=== PATIENT | male | born 1975 | race Caucasian/White ===

== ENCOUNTER 2018-01-23 17:33 | Observation (INO) | payer OTHER ==
[~2018-01-23] VITALS: Ht 185.4 cm; Wt 117.9 kg
[~2018-01-23 17:33] MED LIST: COZAAR100 MG PO; GLIPIZIDE ER10 MG PO; JANUVIA100 MG PO; METFORMIN HYDRO25 G1; NORVASC5 MG; SIMCOR 1,000-21 EACH PO
[2018-01-23 17:55] LABS: BASOPHILS # (AUTO) 0.1 (0.0-0.1); BASOPHILS % 0.6 % (0.0-1.0); EOSINOPHILS # (AUTO) 0.8 (0.0-0.4); EOSINOPHILS % 5.2 % (0.0-6.0); HEMOGLOBIN 14.8 g/dL (14.0-18.0); LYMPHOCYTES # (AUTO) 4.1 (1.0-3.2); LYMPHOCYTES % 25.9 % (18.0-39.1); MEAN CORPUSCULAR HEMOGLOBIN 28.8 pg (28-32); MEAN CORPUSCULAR HGB CONC 33.6 g/dL (31-35); MEAN CORPUSCULAR VOLUME 85.6 fL (81-99); MONOCYTES # (AUTO) 1.1 (0.2-0.8); MONOCYTES % 7.1 % (4.4-11.3); NEUTROPHILS # (AUTO) 9.6 (2.1-6.9); NEUTROPHILS % 60.4 % (38.7-80.0); PLATELET COUNT 384 x10e3/uL (140-360); RED BLOOD COUNT 5.14 x10e6/uL (4.3-5.7); RED CELL DISTRIBUTION WIDTH 14.4 % (11.7-14.4)
[2018-01-23 18:12] LABS: ALBUMIN 3.8 g/dL (3.5-5.0); ALBUMIN/GLOBULIN RATIO 0.9 (0.8-2.0); ANION GAP 13.4 mmol/L (8-16); CREATININE, SERUM 2.31 mg/dL (0.72-1.25); INR 1.08; PARTIAL THROMBOPLASTIN TIME 25.4 seconds (23.8-35.5); POTASSIUM 4.4 mmol/L (3.5-5.1); PROTHROMBIN TIME 13.2 seconds (11.9-14.5)
--- NOTE | 2018-01-23 18:37 | Diagnostic Imaging Report ---
PROCEDURE: Frontal and lateral views of the chest. COMPARISON: Patients [facility], , CHEST SINGLE (NOT PORTABLE), 06/17/2013, 21:16. INDICATIONS: LETHARGIC, SHORTNESS OF BREATH FINDINGS: Lines/tubes: None. Lungs: The lungs are well inflated and clear. There is no evidence of pneumonia or pulmonary edema. Pleura: There is no pleural effusion or pneumothorax. Heart and mediastinum: The heart and the mediastinum are normal. Bones: No acute bony abnormality. IMPRESSION: 1. No acute cardiopulmonary abnormalities. Kaz Richards M.D. Dictated by: Kaz Richards M.D. on 01/23/2018 at 18:38 Electronically approved by: Kaz Richards M.D. on 01/23/2018 at 18:38
[2018-01-23] MEDS ORDERED: DEXTROSE 50% SYRINGE 50 ML IV PRN ×3 (20:00)
[2018-01-23 20:23] LABS: CREATINE KINASE 125 IU/L (30-200)
--- OUTSIDE RECORDS SUMMARY | 2018-01-23 20:39 | XMS REPORT ---
Author Author [facility] Address Unknown Phone Unavailable Care Team Providers Care Fancy Stitcher Name Role Phone CHRISSY BANEGAS Unavailable Unavailable Problems This patient has no known problems. Allergies, Adverse Reactions, Alerts This patient has no known allergies or adverse reactions. Medications This patient has no known medications. Results Test Description Test Time Test Comments Text Results Atomic Results Result Comments CHEST 2 VIEWS [place] [address] Patient Name: BRITTNEY HOUGH MR #: [id number] : 1975 Age/Sex: 42/M Req #: [id number] Adm Physician: Ordered by: CHRISSY BANEGAS MD Report #: [id number] Location: ER Room/Bed: Procedure: [id number] DX/CHEST 2 VIEWS Exam Date: 01/23/18 Exam Time: 1805 REPORT STATUS: Signed PROCEDURE: Frontal and lateral views of the chest. COMPARISON: [facility], DX, CHEST SINGLE (NOT PORTABLE), 06/17/2013, 21:16. INDICATIONS: LETHARGIC, SHORTNESS OF BREATH FINDINGS: Lines/tubes: None. Lungs: The lungs are well inflated and clear. There is no evidence of pneumonia or pulmonary edema. Pleura: There is no pleural effusion or pneumothorax. Heart and mediastinum: The heart and the mediastinum are normal. Bones: No acute bony abnormality. IMPRESSION: 1. No acute cardiopulmonary abnormalities. Jose Guerra M.D. Dictated by: Jose Guerra M.D. on 01/23/2018 at 18:38 Electronically approved by: Jose Guerra M.D. on 01/23/2018 at 18:38 Dictated By: JOSE GUERRA MD 37 Transcribed By: VANESSA on 01/23/181837 COPY TO: CHRISSY BANEGAS MD
[2018-01-23] MEDS: INSULIN REGULAR, HUMAN 100 UNIT/1 ML 3ML VIAL SQ SCH (20:58)
[2018-01-23] MEDS ORDERED: INSULIN REGULAR, HUMAN 100 UNIT/1 ML 3ML VIAL SQ SCH (21:00)
[2018-01-23 22:00] VITALS: BP 137/73
[2018-01-24] VITALS (7 sets, daily range): BP systolic 102–163; BP diastolic 61–79
[2018-01-24 07:07] LABS: BASOPHILS # (AUTO) 0.1 (0.0-0.1); BASOPHILS % 0.8 % (0.0-1.0); EOSINOPHILS # (AUTO) 0.8 (0.0-0.4); EOSINOPHILS % 6.5 % (0.0-6.0); HEMATOCRIT 44.5 % (38.2-49.6); HEMOGLOBIN 14.7 g/dL (14.0-18.0); LYMPHOCYTES # (AUTO) 3.8 (1.0-3.2); LYMPHOCYTES % 30.1 % (18.0-39.1); MEAN CORPUSCULAR HEMOGLOBIN 28.4 pg (28-32); MEAN CORPUSCULAR VOLUME 85.9 fL (81-99); MONOCYTES % 7.8 % (4.4-11.3); NEUTROPHILS # (AUTO) 6.8 (2.1-6.9); NEUTROPHILS % 54.1 % (38.7-80.0); PLATELET COUNT 381 x10e3/uL (140-360); RED BLOOD COUNT 5.18 x10e6/uL (4.3-5.7); RED CELL DISTRIBUTION WIDTH 14.3 % (11.7-14.4)
[2018-01-24] MEDS ORDERED: ACETAMINOPHEN 325 MG TAB PO PRN (07:15)
[2018-01-24] MEDS ORDERED: CLONIDINE HCL 0.1 MG TAB PO PRN (07:15)
[2018-01-24] MEDS: INSULIN REGULAR, HUMAN 100 UNIT/1 ML 3ML VIAL SQ SCH (07:30)
[2018-01-24 07:33] LABS: ALBUMIN 3.4 g/dL (3.5-5.0); ALBUMIN/GLOBULIN RATIO 0.9 (0.8-2.0); CALCIUM 9.5 mg/dL (8.4-10.2); CREATININE, SERUM 1.81 mg/dL (0.72-1.25)
--- NOTE | 2018-01-24 07:38 | History and Physical ---
The patient came in with acute renal failure and leukocytosis. HISTORY OF PRESENT ILLNESS: This is . Rajiv Good who came in yesterday with cough and congestion. The patient was in his usual state of health. He had gone on a cruise about 2 weeks ago to the [facility]. A week ago the patient started with upper respiratory symptoms, lethargy, cough, congestion. Had seen his PCP, Dr. Devi, and was found to have elevated creatinine and also worsening in his lethargy. Came to the emergency room and was found to have leukocytosis and also acute renal failure. PAST MEDICAL HISTORY: History of hypertension, history of diabetes mellitus, history of hyperlipidemia, history of sleep apnea, and history of smoking. SOCIAL HISTORY: History of smoking about a pack a day. No ETOH abuse. No IV drug abuse. REVIEW OF SYSTEMS: Negative for chest pain. Positive for shortness of breath. No nausea, vomiting, diarrhea. No constipation. No rectal bleeding. No hematochezia. No hematemesis. No chills. No fever. No diplopia. No blurry vision. MEDICATIONS: We do not have the complete list, but: 1. Lantus 50 units twice a day. 2. He takes amlodipine 5 mg daily. 3. NovoLog 10 units 3 times a day. 4. Losartan 100 mg a day. 5. Sitagliptin 100 mg daily. PAST SURGICAL HISTORY: History of splenic repair when he was 12, not splenectomy. ALLERGIES: NO KNOWN DRUG ALLERGIES. PHYSICAL EXAMINATION GENERAL: The patient is alert and oriented times 3. HEENT: Normocephalic and atraumatic. Pupils reactive to light and accommodation. CV: S1 and S2 normal. Regular rate and rhythm. ABDOMEN: Nontender and nondistended. EXTREMITIES: Positive for trace edema. LUNGS: Positive for some decreased air entry in the bases. Also, decreased air entry throughout the lung. LABORATORY VALUES: Initial white count was 15,000, neutrophil count of 60 and platelet count is 384,000. There was a left shift. Chemistry: Sodium 137, BUN 27, creatinine 2.3. Coags were normal. Chest x-ray did not show any abnormalities. ASSESSMENT 1. Acute bronchitis: The patient will be started on Levaquin 250 mg once a day. Will also do an echocardiogram on account of his shortness of breath. 2. The patient also has sleep apnea. 3. Cor pulmonale: Will do an echocardiogram to see his left ventricular function. Also, start him on some fluids at 50 mL an hour to hydrate the kidneys. Renal consult will be done. Also, renal ultrasound will be done. Further recommendations per clinical course. Will continue monitoring the patient. He is on BiPAP for his sleep apnea. 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
[2018-01-24] MEDS ORDERED: DEXTROSE 50% SYRINGE 50 ML IV PRN (08:15)
[2018-01-24] MEDS ORDERED: INSULIN LISPRO 100 UNIT/1 ML 3ML VIAL SQ SCH (08:30)
[2018-01-24] MEDS ORDERED: SODIUM CHLORIDE 0.9% 250ML 250 ML ONE (08:42)
[2018-01-24] MEDS: SODIUM CHLORIDE 0.9% 1000ML 1,000 ML SCH ×2 (08:50→21:26)
[2018-01-24] MEDS: LEVOFLOXACIN 250MG/D5W 50ML 50 ML IV SCH (08:50)
[2018-01-24] MEDS: INSULIN LISPRO 100 UNIT/1 ML 3ML VIAL SQ SCH ×7 (08:51→21:26)
[2018-01-24] MEDS: INSULIN DETEMIR 100 UNIT/ML PEN SQ SCH ×2 (08:52→17:18)
[2018-01-24] MEDS: LOSARTAN POTASSIUM 100 MG TAB PO SCH (08:53)
[2018-01-24] MEDS: SITAGLIPTIN 100 MG TAB PO SCH (08:53)
[2018-01-24] MEDS: AMLODIPINE BESYLATE 5 MG TAB PO SCH (08:53)
[2018-01-24] MEDS ORDERED: SITAGLIPTIN 100 MG TAB PO SCH (09:00)
--- NOTE | 2018-01-24 11:49 | Diagnostic Imaging Report ---
PROCEDURE:US RETROPERITONEAL ( KIDNEY ). COMPARISON:CT chest 06/17/13. INDICATIONS:ARF TECHNIQUE: Andrew-scale and color sonographic images of the bilateral kidneys and bladder where obtained in transverse and longitudinal planes. FINDINGS: RIGHT KIDNEY: The length is 12.1 cm. Cysts: None Solid masses: None Stones: None Hydronephrosis: None Echogenicity: Normal LEFT KIDNEY: The length is 12.0 cm. Cysts: None Solid masses: None Stones: None Hydronephrosis: None Echogenicity: Normal Bladder: Well-distended. No mass or mural thickening. Bladder jets are visible. Survey images of the liver demonstrate increased echotexture suggestive of steatosis. No mass in the visualized portions. CONCLUSION: 1. No renal mass or hydronephrosis. 2. Increased echotexture of the liver suggestive of steatosis. Dictated by: Gabi Hale M.D. on 01/24/2018 at 11:51 Electronically approved by: Gabi Hale M.D. on 01/24/2018 at 11:51
--- NOTE | 2018-01-24 12:26 | Consultation ---
DATE OF CONSULTATION: January 24, 2018 HISTORY OF PRESENT ILLNESS: Mr. Good is a 42-year-old gentleman with type-1 diabetes diagnosed approximately 24 years ago. Followed by Dr. Devi. Last hemoglobin A1c was around 8.5. He went to the [facility] and developed upper respiratory tract infection, cough and congestion. He presented here. He has an existing history of sleep apnea. Renal consulted for management of acute kidney injury. Serum creatinine 1.8 and potassium 4. Patient denies prior history of any kidney insufficiency or kidney stone disease. He was recently taken off of metformin for unclear reasons. Has underlying history of hypertension. SOCIAL HISTORY: Does not smoke or drink. . Denies taking any nonsteroidal anti-inflammatory drug medications. CURRENT MEDICATIONS 1. Losartan 100 mg daily. 2. Januvia 50 mg daily. 3. Insulin Humalog. 4. Currently receiving normal saline 125 mL an hour. 5. Amlodipine. 6. Levaquin. For dose schedule, please see MAR. The patient denies any history of retinopathy or neuropathy. FAMILY HISTORY: Diabetes. PHYSICAL EXAMINATION GENERAL: Awake, alert, lying supine, no apparent distress. VITALS: Blood pressure 123/79 and pulse rate 80. HEAD AND NECK: Corneas clear. Oral mucosa dry. LUNGS: Relatively clear. HEART: S1, S2 audible. ABDOMEN: Otherwise soft and nontender. LOWER EXTREMITIES: No edema. IMPRESSION AND PLAN: Acute kidney injury. Possible prerenal dehydration, but could possibly be underlying diabetic nephropathy. Will send workup including ultrasound, spot urine [id number] ratio, urinalysis. Please see orders. Discussed with patient. Will talk more about compliance to medications, diet, control of diabetes, blood pressure control. Please see orders. Job#: [id number]
--- NOTE | 2018-01-24 13:52 | Diagnostic Imaging Report ---
Ventilation/perfusion lung scan Clinical Information: 42 M with chest pain; acute renal failure Comparison: Chest radiograph 01/23/2018 Discussion: Xenon-133 gas 16.4 mCi was administered via inhalation. Dynamic images of the lungs in the posterior projection were obtained through single breath, equilibrium, and washout phases. Distribution of tracer activity is mildly irregular throughout the lungs.. There are no segmental ventilatory defects. Washout of tracer is diffusely delayed with left base air trapping. Perfusion images of the lungs were obtained in multiple projections following intravenous administration of approximately 6.4 mCi of Tc-99m MAA. Distribution of tracer appears physiologic throughout the lungs. The contours of the lungs are well demarcated. There are no segmental perfusion defects of any size. The cardiomediastinal silhouette is unremarkable. Impression: 1. Normal perfusion lung scan. Findings represent a VERY LOW probability for acute pulmonary embolic disease based on the PIOPED II criteria. . Ventilation study consistent with obstructive lung disease. Signed by: Dr. Romy Acosta M.D. on 01/24/2018 1:48 PM
[2018-01-24 16:12] LABS: CREATININE,URINE RANDOM 92.48 mg/dL (63-166); TOTAL PROTEIN, URINE 18.6 mg/dL (1-14)
[2018-01-24 16:17] LABS: CLARITY,URINE CLEAR (CLEAR); COLOR,URINE YELLOW (YELLOW); LEUKOCYTE ESTERASE ,URINE NEGATIVE (NEGATIVE); NITRITE,URINE NEGATIVE (NEGATIVE)
[2018-01-24 16:18] LABS: BILIRUBIN,URINE NEGATIVE (NEGATIVE); KETONES,URINE NEGATIVE (NEGATIVE); PROTEIN,URINE DIPSTICK TRACE (NEGATIVE); URINE UROBILINOGEN 0.2 mg/dL (0.2 - 1)
[2018-01-24 16:20] LABS: WBC,URINE (MAN) 0-5 /HPF (0-5)
[2018-01-25] VITALS (7 sets, daily range): BP systolic 126–145; BP diastolic 61–77
[2018-01-25 06:48] LABS: BASOPHILS # (AUTO) 0.1 (0.0-0.1); BASOPHILS % 0.6 % (0.0-1.0); EOSINOPHILS # (AUTO) 0.9 (0.0-0.4); EOSINOPHILS % 6.9 % (0.0-6.0); HEMATOCRIT 44.5 % (38.2-49.6); HEMOGLOBIN 14.5 g/dL (14.0-18.0); LYMPHOCYTES % 30.3 % (18.0-39.1); MEAN CORPUSCULAR HEMOGLOBIN 28.6 pg (28-32); MEAN CORPUSCULAR HGB CONC 32.6 g/dL (31-35); MEAN CORPUSCULAR VOLUME 87.8 fL (81-99); MONOCYTES # (AUTO) 1.1 (0.2-0.8); MONOCYTES % 8.3 % (4.4-11.3); NEUTROPHILS # (AUTO) 7.1 (2.1-6.9); NEUTROPHILS % 53.1 % (38.7-80.0); PLATELET COUNT 371 x10e3/uL (140-360); RED BLOOD COUNT 5.07 x10e6/uL (4.3-5.7); RED CELL DISTRIBUTION WIDTH 14.2 % (11.7-14.4)
[2018-01-25 07:13] LABS: ALBUMIN 3.6 g/dL (3.5-5.0); ALBUMIN/GLOBULIN RATIO 1.1 (0.8-2.0); ANION GAP 11.2 mmol/L (8-16); CALCIUM 9.4 mg/dL (8.4-10.2); CREATININE, SERUM 1.66 mg/dL (0.72-1.25); POTASSIUM 4.2 mmol/L (3.5-5.1)
[2018-01-25] MEDS: INSULIN DETEMIR 100 UNIT/ML PEN SQ SCH ×2 (08:40→17:00)
[2018-01-25] MEDS: INSULIN LISPRO 100 UNIT/1 ML 3ML VIAL SQ SCH ×7 (08:40→20:32)
[2018-01-25] MEDS: SITAGLIPTIN 100 MG TAB PO SCH (09:16)
[2018-01-25] MEDS: LOSARTAN POTASSIUM 100 MG TAB PO SCH (09:16)
[2018-01-25] MEDS: LEVOFLOXACIN 250MG/D5W 50ML 50 ML IV SCH (09:16)
[2018-01-25] MEDS: AMLODIPINE BESYLATE 5 MG TAB PO SCH (09:16)
--- NOTE | 2018-01-25 13:21 | Diagnostic Imaging Report ---
PROCEDURE: Frontal and lateral views of the chest. COMPARISON: 01/23/2018 INDICATIONS: SHORT OF BREATH FINDINGS: Lines/tubes: None. Lungs: The lungs are well inflated and clear. There is no evidence of pneumonia or pulmonary edema. Pleura: There is no pleural effusion or pneumothorax. Heart and mediastinum: The heart and the mediastinum are normal. Bones: No acute bony abnormality. Surgical clips in the left upper quadrant IMPRESSION: 1. No acute cardiopulmonary disease. Dictated by: Vasiliy Ochoa M.D. on 01/25/2018 at 13:22 Electronically approved by: Vasiliy Ochoa M.D. on 01/25/2018 at 13:22
[2018-01-26] VITALS: BP 121/69
[2018-01-26 04:00] VITALS: BP 134/71
[2018-01-26] MEDS: LEVOFLOXACIN 250MG/D5W 50ML 50 ML IV SCH (08:00)
[2018-01-26 08:14] VITALS: BP 130/60
[2018-01-26 08:19] VITALS: BP 130/60
[2018-01-26] MEDS: AMLODIPINE BESYLATE 5 MG TAB PO SCH (08:56)
[2018-01-26] MEDS: LOSARTAN POTASSIUM 100 MG TAB PO SCH (08:56)
[2018-01-26] MEDS: SITAGLIPTIN 100 MG TAB PO SCH (08:56)
== END 2018-01-26 08:57 | disposition home or self-care (01) ==
LOC: ER 17:33 → EDBEDREQSVC 20:28 → ERHOLD 20:36 → IMCU 20:52
PROVIDERS: ADMIT Family Medicine; ATTEND Family Medicine
DX: N17.9 Acute kidney failure, unspecified (principal); D72.829 Elevated white blood cell count, unspecified; J20.9 Acute bronchitis, unspecified; I27.81 Cor pulmonale (chronic); Z87.891 Personal history of nicotine dependence; I10 Essential (primary) hypertension; E78.5 Hyperlipidemia, unspecified; Z79.4 Long term (current) use of insulin; E86.0 Dehydration; E10.65 Type 1 diabetes mellitus with hyperglycemia; E66.2 Morbid (severe) obesity with alveolar hypoventilation; Z68.34 Body mass index [BMI] 34.0-34.9, adult
CPT/HCPCS: 36415 ×4; 71046 ×2; 76770; 78582; 80053 ×3; 81001; 82550; 82553; 82570; 82948 ×4; 84156; 84484; 85025 ×3; 85379; 85610; 85730; 93005; 93306; 94660; 94760; 96372 ×2; 99284; A9540; A9558; G0378 ×4; J1956 ×2; J7030; J7050

== ENCOUNTER 2022-04-20 10:16 | Emergency (ER) | payer OTHER ==
[~2022-04-20] VITALS: Ht 185.4 cm; Wt 136.1 kg
[2022-04-20 10:36] LABS: BASOPHILS # (AUTO) 0.1 (0.0-0.1); BASOPHILS % 0.6 % (0.0-1.0); EOSINOPHILS # (AUTO) 0.7 (0.0-0.4); EOSINOPHILS % 4.1 % (0.0-6.0); HEMATOCRIT 51.5 % (38.2-49.6); HEMOGLOBIN 17.3 g/dL (14.0-18.0); LYMPHOCYTES # (AUTO) 5.7 (1.0-3.2); LYMPHOCYTES % 32.1 % (18.0-39.1); MEAN CORPUSCULAR HEMOGLOBIN 29.4 pg (28-32); MEAN CORPUSCULAR HGB CONC 33.6 g/dL (31-35); MEAN CORPUSCULAR VOLUME 87.6 fL (81-99); MONOCYTES % 5.6 % (4.4-11.3); NEUTROPHILS # (AUTO) 10.1 (2.1-6.9); NEUTROPHILS % 56.9 % (38.7-80.0); PLATELET COUNT 326 x10e3/uL (140-360); RED BLOOD COUNT 5.88 x10e6/uL (4.3-5.7); RED CELL DISTRIBUTION WIDTH 13.7 % (11.7-14.4)
[2022-04-20] MEDS ORDERED: SODIUM CHLORIDE 0.9% 1000ML 1,000 ML IV STA (10:40)
[2022-04-20] MEDS ORDERED: ENOXAPARIN SODIUM INJ 100 MG/ML SYR SC ONE (10:45)
[2022-04-20] MEDS ORDERED: DILTIAZEM HCL 5 MG/ML 5 ML VIAL IV ONE ×2 (10:45→12:00)
[2022-04-20 10:49] LABS: INR 0.91; PARTIAL THROMBOPLASTIN TIME 26.7 seconds (23.8-35.5); PROTHROMBIN TIME 13.1 seconds (11.9-14.5)
[2022-04-20 10:58] LABS: ALANINE AMINOTRANSFERASE 33 IU/L (0-55); ALBUMIN 3.9 g/dL (3.5-5.0); ALBUMIN/GLOBULIN RATIO 0.9 (0.8-2.0); ALKALINE PHOSPHATASE 46 IU/L (40-150); ANION GAP 16.7 mmol/L (8-16); BLOOD UREA NITROGEN 23 mg/dL (7-26); BUN/CREATININE RATIO 14 (6-25); CALCIUM 9.3 mg/dL (8.4-10.2); CARBON DIOXIDE 27 mmol/L (22-29); CHLORIDE 102 mmol/L (98-107); CREATINE KINASE 62 IU/L (30-200); CREATININE, SERUM 1.65 mg/dL (0.72-1.25); GLUCOSE 89 mg/dL (74-118); MAGNESIUM 1.7 MG/DL (1.3-2.1); POTASSIUM 3.7 mmol/L (3.5-5.1); SODIUM 142 mmol/L (136-145)
[2022-04-20] MEDS ORDERED: SODIUM CHLORIDE 0.9% 1000ML 500 ML IV ONE (11:30)
[2022-04-20 12:53] LABS: CLARITY,URINE CLEAR (CLEAR); COLOR,URINE YELLOW (YELLOW); LEUKOCYTE ESTERASE ,URINE NEGATIVE (NEGATIVE); NITRITE,URINE NEGATIVE (NEGATIVE); PROTEIN,URINE DIPSTICK 2+ (NEGATIVE)
[2022-04-20 12:57] LABS: KETONES,URINE NEGATIVE (NEGATIVE); URINE UROBILINOGEN 0.2 mg/dL (0.2 - 1)
[2022-04-20 13:05] LABS: AMPHETAMINES SCREEN,URINE NEGATIVE (NEGATIVE); BENZODIAZEPINES SCREEN,URINE NEGATIVE (NEGATIVE); PHENCYCLIDINE SCREEN,URINE NEGATIVE (NEGATIVE); WBC,URINE (MAN) 0-5 /HPF (0-5)
[2022-04-20 13:06] LABS: BACTERIA,URINE FEW /HPF; EPITHELIAL CELLS,URINE FEW /LPF
[2022-04-20] MEDS ORDERED: METOPROLOL TARTRATE 25 MG TAB PO ONE (13:15)
[2022-04-20] MEDS ORDERED: DIGOXIN INJ 0.25 MG/ML 2 ML AMP IV ONE (16:00)
[2022-04-20] MEDS ORDERED: NICOTINE 14 MG/EA PATCH TOP SCH (16:30)
[2022-04-20 19:35] VITALS: BP 133/86
== END 2022-04-20 19:25 | disposition other institution (70) ==
LOC: ER 10:26
DX: I48.20 Chronic atrial fibrillation, unspecified (principal); I10 Essential (primary) hypertension; E78.5 Hyperlipidemia, unspecified; E11.9 Type 2 diabetes mellitus without complications; G47.30 Sleep apnea, unspecified; Z20.822 Contact with and (suspected) exposure to COVID-19; F17.210 Nicotine dependence, cigarettes, uncomplicated
CPT/HCPCS: 36415; 71045; 80053; 80307; 81001; 82550; 82553; 83605; 83735; 83880; 84443; 84484; 85025; 85379; 85610; 85730; 87040; 87086; 93005; 99284; J1160; J1650; J7030